=== PATIENT | male | born 1945 | race Hispanic/Latino ===

== ENCOUNTER 2019-01-02 11:08 | Emergency (ER) | payer OTHER ==
[2019-01-02 11:26] VITALS: BP 135/77; PULSE 69; RESP 16; TEMP 98.7; O2SAT 97
--- NOTE | 2019-01-02 13:10 | RAD ---
Date of service: 01/02/2019 PROCEDURE: Left Wrist Radiographs. HISTORY: fall onto left wrist, + swelling COMPARISON: None. TECHNIQUE: 4 views obtained. FINDINGS: BONES: The carpal bones appear intact without definite displaced fracture appreciable. JOINTS: No subluxation or dislocation identified. SOFT TISSUES: Moderate dorsal soft tissue edema is appreciated. OTHER FINDINGS: None. IMPRESSION: No acute displaced fracture identified bilaterally. No subluxation or dislocation. Moderate dorsal soft tissue edema appreciated.
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
== END 2019-01-02 13:59 | disposition home or self-care (01) ==
LOC: H.ER 11:08
DX: S63.502A Unspecified sprain of left wrist, initial encounter (principal); V19.3XXA Pedal cyclist (driver) (passenger) injured in unspecified nontraffic accident, initial encounter; Y93.55 Activity, bike riding